=== PATIENT | female | born 1965 | race African-American/Black ===

== ENCOUNTER 2016-10-22 21:36 | Emergency (ER) | payer MEDICAID ==
[~2016-10-22] VITALS: Ht 175.3 cm; Wt 96.0 kg
[~2016-10-22 21:36] MED LIST: ALBU2.5V13 NEB; CHOL100046 PO; IBUP100O15 PO; LEVO100T9 PO
[2016-10-22] MEDS ORDERED: SODIUM CHLORIDE 0.9% 1,000 ML IV SCH (22:03)
[2016-10-22] MEDS ORDERED: METHYLPREDNISOLONE SOD SUCC 125 MG/2 ML VIAL IV ONE (22:15)
[2016-10-22] MEDS ORDERED: ALBUTEROL (0.083%) 2.5MG/3ML NEB HHN ONE (22:15)
[2016-10-22] MEDS ORDERED: FAMOTIDINE 20MG/2ML VIAL IV ONE (22:15)
[2016-10-22] MEDS ORDERED: EPINEPHRINE 1:1000 1 MG/ML AMP IM ONE (22:15)
[2016-10-22] MEDS ORDERED: DIPHENHYDRAMINE 50MG/ML VIAL IV ONE (22:15)
[2016-10-23 05:32] VITALS: BP 122/76
== END 2016-10-23 05:47 | disposition home or self-care (01) ==
LOC: ER 21:36
DX: T78.1XXA Other adverse food reactions, not elsewhere classified, initial encounter (principal); L29.9 Pruritus, unspecified; R22.0 Localized swelling, mass and lump, head; X58.XXXA Exposure to other specified factors, initial encounter; Z88.6 Allergy status to analgesic agent; Z88.3 Allergy status to other anti-infective agents; Z91.013 Allergy to seafood; Z91.018 Allergy to other foods; J44.9 Chronic obstructive pulmonary disease, unspecified
CPT/HCPCS: 94640; 96361; 96372; 96374; 96375; 99285; J0171; J1200; J2930; J3490; J7030; J7611

== ENCOUNTER 2017-12-04 23:42 | Emergency (ER) | payer OTHER, MEDICAID ==
[~2017-12-04] VITALS: Ht 170.2 cm; Wt 97.0 kg
[~2017-12-04 23:42] MED LIST changes: +IBUP-516 PO; -IBUP100O15 PO
[2017-12-05 00:50] LABS: BASOPHILS % 0.8 % (0.0-2.0); EOSINOPHILS % 2.4 % (0.0-5.0); HEMATOCRIT. 36.3 % (36.0-48.0); HEMOGLOBIN. 12.2 g/dL (12.0-16.0); LYMPHOCYTES % 47.9 % (20.0-50.0); MEAN CORPUSCULAR VOLUME 89.3 fL (81.0-99.0); MEAN PLATELET VOLUME 7.1 fl (7.4-10.4); MONOCYTES % 7.5 % (2.0-8.0); NEUTROPHILS % 41.4 % (40.0-76.0); PLATELET 280 x1000/uL (130-400); RED BLOOD CELL COUNT 4.06 mill/uL (4.2-5.4); RED CELL DISTRIBUTION WIDTH 13.3 % (11.6-14.6)
[2017-12-05 00:55] LABS: CHLORIDE 106 mEq/L (98-107)
[2017-12-05 00:59] LABS: INR 1.1; PARTIAL THROMBOPLASTIN TIME 36.2 sec (23.4-31.0)
[2017-12-05] MEDS ORDERED: KETOROLAC 30MG/ML VIAL IV ONE (01:30)
[2017-12-05] MEDS ORDERED: ONDANSETRON HCL 4MG/2ML VIAL IV ONE (01:30)
[2017-12-05] MEDS ORDERED: MORPHINE SULFATE 4 MG/ML CPJ (NOT FOR IM USE) IV ONE (01:30)
[2017-12-05 01:46] LABS: CLARITY URINE CLEAR (CLEAR); COLOR URINE YELLOW (YELLOW); KETONES URINE NEGATIVE (NEGATIVE); LEUKOCYTE ESTERASE URINE 2+ (NEGATIVE); NITRITE URINE NEGATIVE (NEGATIVE); OCCULT BLOOD URINE TRACE (NEGATIVE); PROTEIN URINE NEGATIVE (NEGATIVE); SPECIFIC GRAVITY URINE 1.028 (1.005-1.030)
[2017-12-05 02:05] LABS: *AMPHETAMINES SCREEN URINE NEGATIVE (NEGATIVE); *BARBITURATES SCREEN URINE NEGATIVE (NEGATIVE); *BENZODIAZEPINES SCREEN URINE NEGATIVE (NEGATIVE); *COCAINE SCREEN URINE NEGATIVE (NEGATIVE)
[2017-12-05 02:06] LABS: CANNABINOID URINE SCREEN NEGATIVE (NEGATIVE); METHADONE URINE SCREEN NEGATIVE (NEGATIVE); OPIATES URINE SCREEN PRESUMTIVE POSITIVE (NEGATIVE); PHENCYCLIDINE URINE SCREEN NEGATIVE (NEGATIVE)
[2017-12-05] MEDS ORDERED: IOHEXOL-350 100 ML BOTTLE ONE (06:33)
[2017-12-05 06:45] VITALS: BP 118/65
== END 2017-12-05 06:45 | disposition home or self-care (01) ==
LOC: ER 12-05 00:59
DX: R07.89 Other chest pain (principal); R10.9 Unspecified abdominal pain; N39.0 Urinary tract infection, site not specified; I10 Essential (primary) hypertension; J44.9 Chronic obstructive pulmonary disease, unspecified; E03.9 Hypothyroidism, unspecified; Z98.890 Other specified postprocedural states; Z88.6 Allergy status to analgesic agent; Z88.3 Allergy status to other anti-infective agents; Z91.013 Allergy to seafood; Z91.018 Allergy to other foods; V43.62XA Car passenger injured in collision with other type car in traffic accident, initial encounter; Y93.89 Activity, other specified; Y92.488 Other paved roadways as the place of occurrence of the external cause
CPT/HCPCS: 36415; 71045; 71275; 74174; 80053; 80305; 81003; 83880; 84484; 85025; 85610; 85730; 87086; 93005; 96374; 96375; 99285; J1885; J2270; J2405; Q9967; Z7610